=== PATIENT | female | born 1960 | race Asian ===

== ENCOUNTER 2017-01-26 10:03 | Day surgery (SDC) | payer BC ==
[2017-01-22 10:41] VITALS: BMI 20.6
[2017-01-26] MEDS ORDERED: PROPOFOL 20 ML ONE ×2 (10:24)
[2017-01-26 12:32] VITALS: BP 101/62; PULSE 75; TEMP 98
== END 2017-01-26 12:35 | disposition home or self-care (01) ==
LOC: FASU-ENDO 10:03
PROVIDERS: ATTEND Internal Medicine Gastroenterology
PROC: 0DJD8ZZ Inspection of Lower Intestinal Tract, Via Natural or Artificial Opening Endoscopic (ICD-10-PCS; principal; 2017-01-26 11:35)
DX: Z12.11 Encounter for screening for malignant neoplasm of colon (principal)